=== PATIENT | female | born 1945 | race African-American/Black ===

== ENCOUNTER 2021-04-09 15:24 | Emergency (ER) | payer OTHER, BC ==
[~2021-04-09] VITALS: Ht 162.6 cm; Wt 109.3 kg
[2021-04-09 15:38] VITALS: BP 124/76
== END 2021-04-09 17:25 | disposition home or self-care (01) ==
LOC: ER 15:24
DX: S41.112A Laceration without foreign body of left upper arm, initial encounter (principal); I10 Essential (primary) hypertension; E11.9 Type 2 diabetes mellitus without complications; Z88.6 Allergy status to analgesic agent; Z88.0 Allergy status to penicillin; Z88.2 Allergy status to sulfonamides; W20.8XXA Other cause of strike by thrown, projected or falling object, initial encounter; Y93.89 Activity, other specified; Y92.89 Other specified places as the place of occurrence of the external cause; Y99.8 Other external cause status

== ENCOUNTER 2021-04-20 13:20 | Emergency (ER) | payer OTHER, BC ==
[~2021-04-20] VITALS: Ht 162.6 cm; Wt 110.2 kg
[2021-04-20 13:22] VITALS: BP 162/67
[2021-04-20] MEDS ORDERED: DOXYCYCLINE 10100 MG PO (13:51)
== END 2021-04-20 13:51 | disposition home or self-care (01) ==
LOC: ER 13:20
DX: L03.114 Cellulitis of left upper limb (principal); E11.9 Type 2 diabetes mellitus without complications; I10 Essential (primary) hypertension; Z48.02 Encounter for removal of sutures; Z88.5 Allergy status to narcotic agent; Z88.0 Allergy status to penicillin; Z88.2 Allergy status to sulfonamides